=== PATIENT | male | born 1970 | race Caucasian/White ===

== ENCOUNTER 2017-03-31 09:53 | Emergency (ER) | payer MEDICAID ==
[~2017-03-31] VITALS: Ht 175.3 cm; Wt 59.9 kg
[2017-03-31 10:20] VITALS: BP 115/88
== END 2017-03-31 11:06 | disposition home or self-care (01) ==
LOC: ER 09:53
DX: S60.212A Contusion of left wrist, initial encounter (principal); S60.222A Contusion of left hand, initial encounter; X58.XXXA Exposure to other specified factors, initial encounter; Y93.89 Activity, other specified; Y92.89 Other specified places as the place of occurrence of the external cause; Y99.8 Other external cause status
CPT/HCPCS: 73110; 73130